=== PATIENT | male | born 1950 | race Caucasian/White ===

== ENCOUNTER 2020-01-02 09:46 | Outpatient (CLI) | payer MEDICARE, SELFPAY ==
--- NOTE | 2020-01-09 03:03 | SLEEP_ITS ---
Sleep Study DATE OF STUDY: 01/02/2020 HISTORY: The patient is 69 years of age. This patient underwent home sleep apnea test, with a history of loud snoring, interrupted sleep, nonrefreshing sleep, and daytime sleepiness, which is quite significant. The patient reports an Larwill Sleepiness Scale of 16/24, consistent with moderate to severe hypersomnia. This patient underwent a home sleep study using [employer]. Recording time starting at 10:28 p.m., 7 hours and 30 minutes. Monitoring time 7 hours and 18 minutes. EVENTS INDEX: The patient had a total of 388 apneas, the obstructive apnea index was 38.6, central apnea index was 11.6, mixed 2.7, and unclassified 0.1. The patient had 80 hypopneas with index of 22.8. Therefore, respiratory event index was 64. Supine index was 63.9, nonsupine index was 69.2. This is consistent with severe obstructive sleep apnea. OXYGEN SATURATION: The baseline saturation was 94%. The average saturation was 91%. Lowest saturation was 66%. Desaturation index was 49.7. The oxygen saturation graft appears to show 3 or 4 episodes of severe desaturations, which is highly suggestive of REM associated hypoxia. PULSE STATISTICS: Average pulse rate was 56, range was 45-86 per minute. CONCLUSION: The study shows presence of severe obstructive sleep apnea, associated with significant desaturation. Given the fact that the patient has significant daytime symptomatology, one would strongly recommend having this patient return for an in-lab full night CPAP titration study. WICHO AGUIRRE MD BEHAVIORAL SERVICES TECH BEHAVIORAL SERVICES TECH D I MT: Dee
== END 2020-01-02 09:47 | disposition home or self-care (01) ==
LOC: CHSCSM 09:49
PROVIDERS: PCP Internal Medicine; Visit Provider Internal Medicine
DX: G47.33 Obstructive sleep apnea (adult) (pediatric) (principal)
CPT/HCPCS: 95806

== ENCOUNTER 2020-06-12 09:14 | Outpatient (CLI) | payer MEDICARE, SELFPAY ==
--- NOTE | ~2020-06-12 | XR_ITS ---
XR lumbar spine 2-3V DATE: 06/12/2020 09:48 INDICATION: Low back pain TECHNIQUE: AP, lateral, coned lateral lumbosacral views COMPARISON: None FINDINGS: The lumbar vertebrae are normally aligned. No fracture or bone destruction or spondylolisth esis. The lumbar pedicles are intact. The L5-S1 disc space is well preserved. There is mild degenerative disc disease at L1-2, L2-3, L3-4 a nd moderate degenerative disc disease at L4-5. The sacral iliac joints are intact. IMPRESSION: Multilevel mild to moderate degenerative disc disease Reviewed, dictated and finalized at location B.
--- NOTE | ~2020-06-12 | XR_ITS ---
XR_CERV2-3V_CR DATE: 06/12/2020 09:48 INDICATION: Neck pain TECHNIQUE: AP, lateral, open-mouth views COMPARISON: None FINDINGS: There is mild reversal cervical curvature. There is minimal levoscoliosis of the cervical s pine. There is moderately prominent degenerative disc disease at C3-4, mild degenerative disc disease at C4 -5, moderately severe degenerative disc disease at C5-6 and C6-7. There is prominent anterior spurrin g at C3-4, C4-5 and C5-6. C1 and C2 are normally aligned and the odontoid process is intact. No fracture or dislocation or lock ed facet or prevertebral soft tissue swelling. Uncovertebral joint spurring and apophyseal joint degenerative changes are noted throughout most of t he cervical spine. The uncovertebral joint spurring is particularly prominent on the right at C5-6 an d C6-7. IMPRESSION: Mild reversal and mild levoscoliosis Multilevel degenerative disc disease and extensive degenerative changes at the uncovertebral and apop hyseal joints Reviewed, dictated and finalized at Location A. Reviewed, dictated and finalized at location B. IMPRESSION: Mild reversal and mild levoscoliosis Multilevel degenerative disc disease and extensive degenerative changes at the uncovertebral and apophyseal joints
== END 2020-06-12 09:15 | disposition home or self-care (01) ==
PROVIDERS: PCP Internal Medicine; Visit Provider Internal Medicine
DX: M54.2 Cervicalgia (principal); M54.5 Low back pain
CPT/HCPCS: 72040; 72100

== ENCOUNTER 2020-06-17 15:51 | Outpatient (RCR) | payer MEDICARE, SELFPAY ==
--- NOTE | 2020-06-17 16:30 | PTOPEVAL ---
Thank you for referring Trace Vega to [facility]. Please review, sign, date and return this plan of care SVEN. I agree with and certify that the following plan of care is medically necessary. Referring Physician Date Admitting Provider: Attending Provider: Flex Mclaughlin MD Referring Provider: *PT Outpatient Evaluation Start: 06/17/20 16:02 Freq: Status: Active Protocol: Document 06/17/20 16:00 J (Rec: 06/17/20 16:30 [facility] [id number]) Therapy Assessment Status Assessment Status Assessment Status Evaluation Evaluation Information Problem Diagnosis neck and back pain Onset 05/11/20 Additional Evaluation Detail ndi = oswestry = 18% functionally declined Subjective Information patient reports arthritic Query Text:As Reported By Patient/ related pain. he report sno Family pain at rest this date. however, he reports increased pain in the neck when bending forward/looing down. he reports he has had pain in the back for years. he reports repetitive motions create increased pain in the lower back. he reports he sparked this the last time by playing miniature golf. he reports he has been to a chiropractor. Prior Level of Function Comments Additional Prior Level of Function patient reports he has a Comments history of back pain and neck pain. he reports in general it is relieved with chirpractic care. however, this time, he is unable to relieve this pain with any normal activities. 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 he reports he was at work this date. Pain Assessment Timing of Pain Assessment Timing of Pain Assessment Assessment Pain Scale Pain Scale Used Numeric (1 - 10) Self Report Pain Assessment Lower Back Reported Pain Level 0 Lowest Pain Intensity 0 Greatest Pain Intensity 7 Neck Reported Pain Level 0 Lowest Pain Intensity 0 Greatest Pain Intensity 2 Pain Score Pain Score 0,0: Self Report Additional Pain Score Comments increased neck pain with head turns side to side
== END 2020-07-11 10:42 | disposition home or self-care (01) ==
LOC: CHSPT 15:51
PROVIDERS: PCP Internal Medicine; Visit Provider Internal Medicine
DX: M54.2 Cervicalgia (principal); M54.5 Low back pain
CPT/HCPCS: 97014; 97110; 97161; G0283

== ENCOUNTER 2021-12-23 13:41 | Outpatient (CLI) | payer MEDICARE, SELFPAY ==
[2021-12-23 15:07] LABS: Influenza A QL RT-PCR Negative (Negative); Influenza B QL RT-PCR Negative (Negative); SARS-CoV-2 RNA PCR Negative (Negative)
== END 2021-12-23 13:42 | disposition home or self-care (01) ==
PROVIDERS: PCP Internal Medicine; Visit Provider Internal Medicine
DX: J06.9 Acute upper respiratory infection, unspecified (principal); Z20.822 Contact with and (suspected) exposure to COVID-19
CPT/HCPCS: 87502; C9803; U0003; U0005

== ENCOUNTER 2021-12-25 11:31 | Outpatient (CLI) | payer MEDICARE, SELFPAY ==
[2021-12-25 12:51] LABS: SARS-CoV-2 RNA PCR Negative (Negative)
== END 2021-12-25 11:32 | disposition home or self-care (01) ==
LOC: CHSLAB 11:33
PROVIDERS: PCP Internal Medicine; Visit Provider Internal Medicine
DX: J06.9 Acute upper respiratory infection, unspecified (principal); Z20.822 Contact with and (suspected) exposure to COVID-19
CPT/HCPCS: C9803; U0003; U0005

== ENCOUNTER 2022-01-27 16:48 | Outpatient (CLI) | payer MEDICARE, SELFPAY ==
--- NOTE | ~2022-01-27 | XR_ITS ---
EXAMINATION: XR sinus min 3V EXAM DATE: 01/27/2022 17:19 INDICATION: cough,fever,Recurrent sinusitis. TECHNIQUE: Sinus frontal, lateral, Amos, Vanessa's, submentovertex projections. There is no prior s tudy for comparison. FINDINGS: Congenitally underpneumatized frontal sinuses. Possible mild bilateral maxillary sinus muc operiosteal thickening. No sinus air-fluid levels suspected. Orbital rims are unremarkable. The soft tissue is unremarkable. IMPRESSION: Predominantly aerated sinuses with possibility of mild maxillary sinus mucoperiosteal th ickening. Reviewed, dictated and finalized at location G. IMPRESSION: Predominantly aerated sinuses with possibility of mild maxillary s inus mucoperiosteal thickening.
--- NOTE | ~2022-01-27 | XR_ITS ---
EXAMINATION: XR chest 2V EXAM DATE: 01/27/2022 17:18 INDICATION: cough,fever,Recurrent sinusitis . TECHNIQUE: Frontal and lateral projections of the chest obtained and reviewed. There is no prior misit dy for comparison. FINDINGS: The lungs are clear. There are no pleural effusions. The cardiomediastinal silhouette is within normal limits. There is no pneumothorax suspected. The bones and soft tissues are unremarkab le. IMPRESSION: Unremarkable chest x-ray exam. Reviewed, dictated and finalized at location G.
[2022-01-27 17:41] LABS: Hematocrit 43.7 % (37.0-46.0); Hemoglobin 14.4 g/dL (12.4-15.3); Mean Corpuscular Hemoglobin 30.6 pg (27.0-31.0); Mean Platelet Volume 8.8 fl (8.7-11.0); Platelet Count Result 164 K/mm3 (150-420); Red Cell Distribution Width 14.6 % (11.6-14.4)
[2022-01-27 17:58] LABS: Alanine Aminotransferase 65 U/L (16-63); Albumin Level 3.8 g/dL (3.4-5.0); Alkaline Phosphatase 40 U/L (46-116); Anion Gap 5 mmol/L (8-16); Aspartate Amino Transferase 42 U/L (15-37); Bilirubin,Total 0.4 mg/dL (0.00-1.00); Blood Urea Nitrogen 17 mg/dL (7-18); CRP 2.6 mg/dL (0.0-0.9); Calcium 8.6 mg/dL (8.5-10.1); Carbon Dioxide 30 mmol/L (21-32); Chloride 102 mmol/L (98-108); Estimated Glomerular Filt Rate 55; Glucose 94 mg/dL (70-99); Osmolality Calculated 285 mOsm/kg (285-295); Potassium 4.2 mmol/L (3.5-5.1); Sodium 137 mmol/L (136-145); Total Protein 7.1 g/dL (6.4-8.2)
[2022-01-27 18:16] LABS: Influenza A QL RT-PCR Negative (Negative); Influenza B QL RT-PCR Negative (Negative); SARS-CoV-2 RNA PCR Positive (Negative)
[2022-01-27 18:20] LABS: Band Neutrophils Percent 0 % (0-6); Basophils Percent Manual 0 % (0-1); Eosinophils Percent Manual 0 % (1-6); Lymphocytes Absolute Manual 1.47 K/mm3 (1.1-4.5); Lymphocytes Percent Manual 21 % (18-44); Monocytes Absolute Manual 1.33 K/mm3 (0.1-0.90); Monocytes Percent Manual 19 % (3-9); Neutrophils Percent Manual 60 % (46-73); Platelet Estimate Adequate (Adequate); Total Cells Counted 100
== END 2022-01-27 16:49 | disposition home or self-care (01) ==
PROVIDERS: PCP Internal Medicine; Visit Provider Internal Medicine
DX: U07.1 COVID-19 (principal); J06.9 Acute upper respiratory infection, unspecified; R05.9 Cough, unspecified; R50.9 Fever, unspecified; J32.9 Chronic sinusitis, unspecified
CPT/HCPCS: 36415; 70220; 71046; 80053; 85025; 86140; 87502; C9803; U0003; U0005

== ENCOUNTER 2024-02-01 12:49 | Outpatient (CLI) | payer MEDICARE, SELFPAY | END 2024-02-01 12:50 | disposition home or self-care (01) | PROVIDERS: PCP Internal Medicine; Visit Provider Otolaryngology | DX: H93.13 Tinnitus, bilateral (principal); H90.3 Sensorineural hearing loss, bilateral | CPT/HCPCS: 92557; 92567 ==

== ENCOUNTER 2024-03-16 09:30 | Outpatient (RCR) | payer MEDICARE, SELFPAY | END 2024-05-13 23:59 | disposition home or self-care (01) | LOC: ANHAUDASC 09:30 | PROVIDERS: PCP Internal Medicine; Visit Provider Internal Medicine | DX: Z46.1 Encounter for fitting and adjustment of hearing aid (principal) | CPT/HCPCS: 99199; V5261 ==

== ENCOUNTER 2024-12-18 16:16 | Outpatient (CLI) | payer MEDICARE, SELFPAY ==
--- NOTE | ~2024-12-18 | XR_ITS ---
EXAMINATION: XR shoulder LT min 2V DATE: 12/18/2024 16:29 INDICATION: Left shoulder pain. TECHNIQUE: 4 views of left shoulder were obtained. COMPARISON: None. FINDINGS: Alignment is normal. No fracture. There is mild osteoarthritis of the acromioclavicular heraclio nt. Glenohumeral joint is normal. IMPRESSION: 1. Mild osteoarthritis of acromioclavicular joint. Reviewed, dictated and finalized at location A. [facility]
--- OUTSIDE RECORDS SUMMARY | 2024-12-18 16:29 | XMS_ITS | Clinical Summary ---
Author Organization [facility] Address [facility] [place] [address] Care Team Providers Care Therapist Name Role Phone Flex Mclaughlin MD Primary Care Provider Geovanny Purvis MD Unavailable [phone] Allergies No known active allergies Medications fexofenadine (LOIS) 180 MG tablet Take 1 tablet (180 mg total) by mouth daily. 01/30/2015 Active aspirin EC 81 MG tablet Take 1 tablet (81 mg total) by mouth daily. 01/30/2015 Active Fish Oil 1000 MG Cap Take 1 capsule (1,000 mg total) by mouth daily. 01/30/2015 Active Psyllium-Calciu m (METAMUCIL PLUS CALCIUM) Cap Take 1 capsule by mouth daily. 01/30/2015 Active montelukast 10 MG tablet Take 1 tablet (10 mg total) by mouth daily. 01/30/2015 Active multivitamin tablet Take 1 tablet by mouth daily. 01/30/2015 Active Ascorbic Acid (VITAMIN C OR) Take 1 tablet by mouth daily. 01/30/2015 Active VITAMIN E OR Take by mouth daily. 01/30/2015 Active simvastatin 10 MG tablet Take 1 tablet (10 mg total) by mouth nightly at bedtime. 04/07/2017 Active Ergocalciferol (VITAMIN D2) 400 units Tab Take 1 tablet by mouth daily. 04/20/2018 Active Active Problems Problem Noted Date Diagnosed Date LUCAS on CPAP 05/01/2020 Hyperlipidemia Essential (primary) hypertension Immunizations Name Administration Dates Next Due Fluzone High Dose - >Age 65 (Prefilled Syringe) 08/21/2019,08/14/2018,07/28/2017 Influenza (Generic) 08/22/2015 Influenza Adult (Generic) 08/13/2016,12/2013,07/24/2013,2011 Pneumococcal (Pneumovax 23) 11/01/2017 Pneumococcal (Prevnar 13) 08/29/2015 Shingrix 10/19/2019,08/21/2019 Td 07/15/2013 Tdap (Adacel) 10/02/2012 Zoster (Zostavax) 43815 Unt/0.65Ml 10/02/2013 Family History Medical History Relation Comments AAA Father Stroke Maternal Grandfather Stroke Paternal Grandmother Relation Status Comments Brother 1 Alive Brother 2 Alive Father (Age 99) Maternal Grandfather (Age 83) Maternal Grandmother (Age 95) Mother Alive Paternal Grandfather (Age 77) Paternal Grandmother (Age 72) Social History Tobacco Use Types Packs/Day Years Used Date Smoking Tobacco: Never Smokeless Tobacco: Never Alcohol Use Standard Drinks/Week Comments No 0 (1 standard drink = 0.6 oz pur e alcohol) Sex and Gender Information Value Date Recorded Sex Assigned at Not on file Legal Sex Male 9:37 PM CDT Gender Identity Not on file Sexual Orientation Not on file 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 Not on file Not on file Not on f ile Last Filed Vital Signs Vital Sign Reading Time Taken Comments Blood Pressure 126/84 05/24/2024 11:41 AM CDT Pulse 56 05/24/2024 11:41 AM CDT Temperature - - Respiratory Rate - - Oxygen Saturation 97% 05/13/2022 8:54 AM CDT Inhaled Oxygen Concentration - - Weight 110.7 kg (244 lb) 05/24/2024 11:41 AM CDT Height 182.9 cm (6') 05/24/2024 11:41 AM CDT Body Mass Index 33.09 05/24/2024 11:41 AM CDT Plan of Treatment Upcoming Encounters Date Type Department Care Team (Late st Contact Info) Description 05/30/2025 9:15 AM CDT [facility] [address] [place] [phone] Geovanny Purvis MD [address] [address] Health Maintenance Due Date Last Done Comments Colorectal Cancer Screening Colonoscopy (10 Years) 1950 Hepatitis C 1969 Annual Medicare Wellness Visit 2016 DTaP, Tdap and Td Vaccines (3 - Td or Tdap) 07/15/2023 07/15/2013, 10/02/2012 COVID-19 Vaccine ( - season) 2024 Influenza Adult (#1) 2024 08/21/2019, 08/14/2018, 07/28/2017, Additional history exists RSV Immunization or 60+ Years (1 - 1-dose 75+ series) 2026 Pneumococcal Vaccine: 65+ Years Completed 11/01/2017, 08/29/2015 Zoster Vaccines Completed 10/19/2019, 08/07, 10/02/2013 Meningococcal B Vaccine Aged Out No l onger eligible based on patient's age to complete this topic Meningococcal Vaccine Aged Out No drew arelis eligible based on patient's age to complete this topic RSV Immunizations Under 20 Months Aged Out No longer eligible based on patient's age to complete this topic Insurance [employer] Care Teams Therapist Relationship Specialty Start Date End Date Flex Mclaughlin MD [address] [place] [address] PCP - General INTERNAL MEDICINE 04/07/16 Geovanny Purvis MD [facility]. [address] [address] [employer] Manager Web CARDIOVASCULAR DISEASE 04/07/16
--- OUTSIDE RECORDS SUMMARY | 2024-12-18 16:29 | XMS_ITS | Encounter Summary ---
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 No action needed documented in this encounter Plan of Treatment Upcoming Encounters Date Type Department Care Team (Late st Contact Info) Description 05/30/2025 9:15 AM CDT Office Visit [facility] [address] [place] [phone] Geovanny Purvis MD [facility]. [address] [address] documented as of this encounter Procedures Procedure Name Priority Date/Time Associated Diagnosis Comments COMPREHENSIVE METABOLIC PANEL Routine 11/26/2022 LIPID PANEL Routine 11/26/2022 CBC, MANUAL DIFF Routine 11/26/2022 THYROID STIM HORMONE TSH Routine 11/26/2022 CBC (OUTSIDE LAB) Routine 01/27/2022 COMPREHENSIVE METABOLIC PANEL Routine 01/27/2022 C-REACTIVE PROTEIN Routine 01/27/2022 PROSTATE SPECIFIC ANTIGEN,TOTAL Routine 11/13/2021 LIPID PANEL Routine 11/13/2021 THYROID STIM HORMONE TSH Routine 11/13/2021 COMPREHENSIVE METABOLIC PANEL Routine 10/28/2017 LIPID PANEL Routine 10/28/2017 CBC (OUTSIDE LAB) Routine 01/07/2017 COMPREHENSIVE METABOLIC PANEL Routine 01/07/2017 PHOSPHORUS, INORGANIC PHOSPHATE Routine 01/07/2017 VITAMIN D, 25 OH Routine 01/07/2017 MAGNESIUM Routine 01/07/2017 CBC (OUTSIDE LAB) Routine 10/26/2016 COMPREHENSIVE METABOLIC PANEL Routine 10/26/2016 LIPID PANEL Routine 10/26/2016 LIPID PANEL Routine 10/26/2016 THYROID STIM HORMONE TSH Routine 10/26/2016 documented in this encounter Results * COMPREHENSIVE METABOLIC PANEL (11/26/2022) Pathologist [facility] SODIUM S/P/B 142 GLUCOSE 84 mg/dL AST 27 BUN 17 CREATININE S/P/B 1.24 0.7 - 1.3 CALCIUM S/P/B 9.3 POTASSIUM S/P/B 4.4 CHLORIDE S/P/B 104 ALT 29 GFR ESTIMATE 62 Narrative Resulting Agency Comment Default History Genericprovider LABORATORY Edited Result - Final * LIPID PANEL (11/26/2022) Pathologist [facility] CHOLESTEROL 166 TRIGLYCERIDES 91 HDL 44 LDL (CALCULATED) 103 NON HDL CHOLESTEROL 122 Narrative Resulting Agency Comment us Default History Genericprovider LABORATORY Edited Result - Final * CBC, MANUAL DIFF (11/26/2022) [facility] WBC 5.8 HGB 15.7 HCT 48.9 PLT 243 Narrative Resulting Agency Comment Default History Genericprovider LABORATORY Edited Result - Final * THYROID STIM HORMONE, TSH (11/26/2022) [facility] TSH 4.85 Narrative Resulting Agency Comment Default History Genericprovider LABORATORY Edited Result - Final * C-REACTIVE PROTEIN (01/27/2022) [facility] CRP 2.6 01/27/2022 Doc [facility] LABORATORY Final Result * COMPREHENSIVE METABOLIC PANEL (01/27/2022) Pathologist [facility] SODIUM S/P/B 137 POTASSIUM S/P/B 4.2 CO2 30 CHLORIDE S/P/B 102 GLUCOSE 94 mg/dL CALCIUM S/P/B 8.6 BUN 17 CREATININE S/P/B 1.29 0.7 - 1.3 EGFR NON-AFR. AMER. 55 <=90 ALKALINE PHOSPHATASE S/P/B 40 ALT 65 AST 42 BILIRUBIN TOTAL S/P/B 0.4 ALBUMIN S/P/B 3.8 3.5 - 5.0 TOTAL PROTEIN S/P/B 7.1 01/27/2022 us Doc [facility] LABORATORY Final Result * CBC (OUTSIDE LAB) (01/27/2022) WBC 7.0 HGB 14.4 HCT 43.7 PLT 164 01/27/2022 us Doc [facility] Abstract LAB-OUTSIDE/ABSTRACTED Final Result * PROSTATE SPECIFIC ANTIGEN,TOTAL (11/13/2021) PSA 0.66 11/13/2021 us Doc [facility] LABORAT[facility] Final Result * THYROID STIM HORMONE, TSH (11/13/2021) TSH 5.10 11/13/2021 us Doc [facility] LABORAT[facility] Final Result * LIPID PANEL (11/13/2021) CHOLESTEROL 181 HDL 47 TRIGLYCERIDES 163 NON HDL CHOLESTEROL 134 LDL (CALCULATED) 106 11/13/2021 us Doc [facility] LABORATORY Final Result * LIPID PANEL (10/28/2017) CHOLESTEROL 173 HDL 47 TRIGLYCERIDES 99 LDL (CALCULATED) 106 10/28/2017 us Doc [facility] LABORATORY Edited Resul t - Final * COMPREHENSIVE METABOLIC PANEL (10/28/2017) SODIUM S/P/B 144 POTASSIUM S/P/B 4.8 CO2 31 CHLORIDE S/P/B 105 GLUCOSE 98 mg/dL CALCIUM S/P/B 9.0 BUN 14 CREATININE S/P/B 1.16 0.7 - 1.3 EGFR NON-AFR. AMER. 67 <=90 ALKALINE PHOSPHATASE S/P/B 38 ALT 50 AST 28 BILIRUBIN TOTAL S/P/B 0.32 ALBUMIN S/P/B 4.1 3.5 - 5.0 TOTAL PROTEIN S/P/B 7.2 10/28/2017 [facility]ORAT[facility] Final Result * CBC (OUTSIDE LAB) (01/07/2017) WBC 6.2 HGB 15.4 HCT 45.8 PLT 203 01/07/2017 Doc [facility] LAB-OUTSIDE/ABSTRACTED Final Result * MAGNESIUM (01/07/2017) MAGNESIUM 2.1 01/07/2017 Doc [facility] LABORAT[facility] Final Result * PHOSPHORUS, INORGANIC PHOSPHATE (01/07/2017) PHOSPHORUS 4.0 01/07/2017 [facility] Final Result * VITAMIN D, 25 OH (01/07/2017) VITAMIN D 25 HYDROXY S/P/B 29 01/07/2017 [facility] Final Result * COMPREHENSIVE METABOLIC PANEL (01/07/2017) SODIUM S/P/B 142 POTASSIUM S/P/B 4.7 CO2 30 CHLORIDE S/P/B 105 GLUCOSE 85 CALCIUM S/P/B 9.3 BUN 16 CREATININE S/P/B 1.22 0.7 - 1.3 EGFR AFR. AMER. 72 EGFR NON-AFR. AMER. 62 <=90 ALKALINE PHOSPHATASE S/P/B 33 ALT 32 AST 27 BILIRUBIN TOTAL S/P/B 0.5 ALBUMIN S/P/B 4.5 3.5 - 5.0 TOTAL PROTEIN S/P/B 7.0 GLOBULIN 2.5 01/07/2017 us Doc [facility] LABORATORY Edited Resul t - Final * LIPID PANEL (10/26/2016) Pathologist [facility] CHOLESTEROL 180 HDL 49 TRIGLYCERIDES 105 LDL (CALCULATED) 110 10/26/2016 us Doc [facility] LABORATORY Final Result * (ABNORMAL) COMPREHENSIVE METABOLIC PANEL (10/26/2016) SODIUM S/P/B 143 POTASSIUM S/P/B 4.7 CO2 22 CHLORIDE S/P/B 105 GLUCOSE 87 CALCIUM S/P/B 8.9 BUN 17 CREATININE S/P/B 1.32(A) 0.7 - 1.3 EGFR NON-AFR. AMER. 58 ALKALINE PHOSPHATASE S/P/B 40 ALT 43 AST 28 BILIRUBIN TOTAL S/P/B 0.52 ALBUMIN S/P/B 4.1 3.5 - 5.0 TOTAL PROTEIN S/P/B 6.9 10/26/2016 us Doc [facility] LABORAT[facility] Final Result * THYROID STIM HORMONE, TSH (10/26/2016) Pathologist [facility] TSH 3.67 10/26/2016 us Doc [facility] LABORATORY Final Result * CBC (OUTSIDE LAB) (10/26/2016) WBC 5.2 HGB 15.7 HCT 47.1 PLT 208 10/26/2016 us Doc [facility] Abstract LAB-OUTSIDE/ABSTRACTED Edite d Result - Final * LIPID PANEL (10/26/2016) CHOLESTEROL 180 HDL 49 TRIGLYCERIDES 105 LDL (CALCULATED) 110 10/26/2016 us Doc [facility] LABORATORY Final Result documented in this encounter Visit Diagnoses Not on filedocumented in this encounter Care Teams Data Analysis Assistant Relationship Specialty Start Date End Date Flex Mclaughlin MD [address] [place] [phone] PCP - General INTERNAL MEDICINE 04/07/16 Geovanny Purvis MD [facility] [address] [place] [address] [employer] Weaver CARDIOVASCULAR DISEASE 04/07/16 documented as of this encounter
--- OUTSIDE RECORDS SUMMARY | 2024-12-18 16:29 | XMS_ITS | Encounter Summary ---
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 [address] [place] [address] documented as of this encounter Visit Diagnoses Not on filedocumented in this encounter Care Teams Director Of Market Intelligence Relationship Specialty Start Date End Date Flex Mclaughlin MD [address] [place] [address] PCP - General INTERNAL MEDICINE 04/07/16 Geovanny Purvis MD [facility]. [facility] [address] [place] [address] [employer] Physical Security Manager CARDIOVASCULAR DISEASE 04/07/16 documented as of this encounter
== END 2024-12-18 16:17 | disposition home or self-care (01) ==
LOC: CHSIMG 16:18
PROVIDERS: PCP Internal Medicine; Visit Provider Internal Medicine
DX: M25.512 Pain in left shoulder (principal); M19.012 Primary osteoarthritis, left shoulder
CPT/HCPCS: 73030

== ENCOUNTER 2024-12-25 14:51 | Outpatient (RCR) | payer MEDICARE, SELFPAY ==
--- NOTE | 2024-12-25 15:45 | OPREHPOC ---
Outpatient Therapy Plan of Care This is a Multidisciplinary Plan of Care that may contain components documented by all disciplines (PT, OT, and ST.) PT Problem 1 PT Problem #1 Knowledge Deficit PT Goal 1 Goal / Goal Update 1. independent and compliant with HEP PT Problem 2 PT Problem #2 Pain PT Goal 1 Goal / Goal Update 1. no more than 1/10 pain in the L shoulder with UE functional activities and golf swing. Target Visit 12 PT Problem 3 PT Problem #3 Impaired Strength PT Goal 1 Goal / Goal Update 1. 5/5 L shoulder flex 2. 5/5 bilateral shoulder ER Target Visit 12 PT Problem 4 PT Problem #4 Impaired Range of Motion PT Goal 1 Goal / Goal Update 1. 90 degrees active L shoulder ER 2. 70 degrees active L shoulder IR Target Visit 12 PT Problem 5 PT Problem #5 Impaired Functional Mobility PT Goal 1 Goal / Goal Update 1. quick dash to display 5% or less functional deficits 2. patient to lift 10lbs overhead with the L UE without pain 3. patient to swing a golf club at full speed without pain in the L shoulder Target Visit 12
--- NOTE | 2024-12-25 15:45 | PTOPEVAL1 ---
Assessment and note entered by JT File, PT Evaluation Information Assessment Status Evaluation ICD-10 Condition Codes (PT) Pain in left shoulder M25.512 Onset 12/18/24 Subjective Information patient reports he has been having pain in the L shoulder for several months. he reports no injury. he reports he did have an xray of the L shoulder, and was told he has mild arthritis. he was put on a steroid, and no has little pain. he reports he notices increased pain in the L shoulder when driving and holding the steering wheel with the L arm while resting arm on the arm rest. he reports he would like to be able to play golf when it gets warm. Reported Pain Level Pain Score 0: Self Report Assessment PT Clinical Summary mr. carter is a 74 yo man who presents to skilled PT services for evaluation and treatment of L shoulder pain. his pain is of insidious onset , and has been relieved with oral steroids. he displays decreased L shoulder rotation rom, L shoulder flex strength, and pain with RTC and impingement testing. he also presents with popping and grinding in the L shoulder. his signs and symptoms are consistent with a rtc tendonitis with impingement and OA of the L shoulder. continued skilled PT is indicated to improve his objective/ functional deficits and return to his prior level functional activity performance/quality of life. Plan of Care Interventions Electrical Stimulation,Hot Pack/Cold Pack,Manual Therapy,Neuro Re-education,Patient/Caregiver Education,Therapeutic Activities,Therapeutic Exercise PT Services Indicated Yes Treatment Frequency and 3x weekly for 12 visits Duration These treatments will address the objective and functional deficits as defined above. The patient will be advanced safely and appropriately in order for the patient to progress towards his/her prior level of function. Additional exercises will be introduced and as well as a comprehensive home exercise program upon discharge, if needed, ?to ensure carryover of functional gains achieved in the clinic. This treatment plan has been reviewed and agreement upon by the patient.
--- NOTE | 2025-01-24 16:17 | OPREHPOC ---
Outpatient Therapy Plan of Care This is a Multidisciplinary Plan of Care that may contain components documented by all disciplines (PT, OT, and ST.) PT Problem 1 PT Problem #1 Knowledge Deficit PT Goal 1 Goal / Goal Update 1. independent and compliant with HEP Progress Met PT Problem 2 PT Problem #2 Pain PT Goal 1 Goal / Goal Update 1. no more than 1/10 pain in the L shoulder with UE functional activities and golf swing. Target Visit 12 Progress Not Met PT Problem 3 PT Problem #3 Impaired Strength PT Goal 1 Goal / Goal Update 1. 5/5 L shoulder flex 2. 5/5 bilateral shoulder ER Target Visit 12 Progress Not Met PT Problem 4 PT Problem #4 Impaired Range of Motion PT Goal 1 Goal / Goal Update 1. 90 degrees active L shoulder ER 2. 70 degrees active L shoulder IR Target Visit 12 Progress Met PT Problem 5 PT Problem #5 Impaired Functional Mobility PT Goal 1 Goal / Goal Update 1. quick dash to display 5% or less functional deficits. met 2. patient to lift 10lbs overhead with the L UE without pain 3. patient to swing a golf club at full speed without pain in the L shoulder Target Visit 12 Progress Partially Met
--- NOTE | 2025-01-24 16:17 | PTOPPROGNS ---
Assessment and note entered by JT File, PT Evaluation Information Assessment Status Progress ICD-10 Condition Codes (PT) Pain in left shoulder M25.512 Onset 12/18/24 Subjective Information patient reports the L shoulder is better since beginning therapy. however, he reports he continues to have pain in the L shoulder with raising the shoulder up to his side. he reports at times still driving long distances with the L arm will bother him. he reports he has not yet tried to return to golf. Assessment PT Clinical Summary mr. carter presents to skilled PT for his 10th skilled therapy visit. he presents with improved L shoulder rom, decreased pain, and improved functional performance overall per the quick dash. he is progressing towards goals, but would benefit from continued skilled PT to improve his remaining objective/functional deficits and achieve all goals for skilled PT. Plan of Care Interventions Electrical Stimulation,Hot Pack/Cold Pack,Manual Therapy,Neuro Re-education,Patient/Caregiver Education,Therapeutic Activities,Therapeutic Exercise PT Services Indicated Yes Treatment Frequency and continue per initial POC Duration These treatments will address the objective and functional deficits as defined above. The patient will be advanced safely and appropriately in order for the patient to progress towards his/her prior level of function. Additional exercises will be introduced and as well as a comprehensive home exercise program upon discharge, if needed, ?to ensure carryover of functional gains achieved in the clinic. This treatment plan has been reviewed and agreement upon by the patient.
--- NOTE | 2025-01-31 11:28 | OPREHPOC ---
Outpatient Therapy Plan of Care This is a Multidisciplinary Plan of Care that may contain components documented by all disciplines (PT, OT, and ST.) PT Problem 1 PT Problem #1 Knowledge Deficit PT Goal 1 Goal / Goal Update 1. independent and compliant with HEP Progress Met PT Problem 2 PT Problem #2 Pain PT Goal 1 Goal / Goal Update 1. no more than 1/10 pain in the L shoulder with UE functional activities and golf swing. Target Visit 12 Progress Met PT Problem 3 PT Problem #3 Impaired Strength PT Goal 1 Goal / Goal Update 1. 5/5 L shoulder flex 2. 5/5 bilateral shoulder ER Target Visit 12 Progress Met PT Problem 4 PT Problem #4 Impaired Range of Motion PT Goal 1 Goal / Goal Update 1. 90 degrees active L shoulder ER 2. 70 degrees active L shoulder IR Target Visit 12 Progress Met PT Problem 5 PT Problem #5 Impaired Functional Mobility PT Goal 1 Goal / Goal Update 1. quick dash to display 5% or less functional deficits. -met 2. patient to lift 10lbs overhead with the L UE without pain -met 3. patient to swing a golf club at full speed without pain in the L shoulder -not met due to golf course closure Target Visit 12 Progress Partially Met
--- NOTE | 2025-01-31 11:28 | PTOPDC ---
Assessment and note entered by Patricia Womack, PT Evaluation Information Assessment Status Discharge ICD-10 Condition Codes (PT) Pain in left shoulder M25.512 Onset 12/18/24 Subjective Information Trace reports his shoulder is feeling better and he doesn't have any pain today. He had some pain and a throbbing in the shoulder yesterday when he was lying down but he was able to get outside and rake his yard and the pain subsided. He did try to get back into golfing yesterday but was unable to because the course was closed, but he plans on getting back into it as soon as possible. He's been independent with his HEP and feels like his pain is manageable at this point. Reported Pain Level Pain Score 0: Self Report Pain Score 1: Self Report Assessment PT Clinical Summary Mr. Piña has attended 12 total skilled PT visits addressing L shoulder pain. Since beginning therapy he has made good improvements in his L shoulder AROM and strength. He attempted to golf yesterday but was unable to due to course closure, but he plans on getting back into golfing as soon as he can and feels like he'll be able to return to golfing without much difficulty. He denies pain in the L shoulder and when he has pain he feels like it's manageable. He has been independent with his HEP, he has met or partially met all therapeutic goals set for him at this time and therefore skilled PT intervention is no longer indicated. Plan of Care PT Services Indicated No
== END 2025-01-31 13:07 | disposition home or self-care (01) ==
LOC: CHSPT 14:51
PROVIDERS: PCP Internal Medicine; Visit Provider Internal Medicine
DX: M25.512 Pain in left shoulder (principal)
CPT/HCPCS: 97110; 97112; 97150; 97161; 97530

== ENCOUNTER 2025-09-04 11:14 | Outpatient (CLI) | payer MEDICARE, SELFPAY ==
[2025-09-04 11:31] LABS: Hematocrit 46.0 % (37.0-46.0); Hemoglobin 15.0 g/dL (12.4-15.3); Mean Corpuscular HGB Conc 32.6 g/dL (32-36); Mean Corpuscular Hemoglobin 30.0 pg (27.0-31.0); Mean Corpuscular Volume 92.0 fL (78.0-102.0); Platelet Count Result 232 K/mm3 (150-420); Red Blood Count 5.00 M/mm3 (4.70-6.10); White Blood Count 11.6 K/mm3 (4.8-10.8)
[2025-09-04 11:57] LABS: Alanine Aminotransferase 48 U/L (6-50); Albumin Level 4.7 g/dL (3.5-5.1); Alkaline Phosphatase 40 U/L (38-126); Anion Gap 6 mmol/L (4-12); Aspartate Amino Transferase 46 U/L (17-59); Bilirubin,Total 0.7 mg/dL (0.2-1.3); Blood Urea Nitrogen 15 mg/dL (9-20); Calcium 9.5 mg/dL (8.4-10.2); Carbon Dioxide 33 mmol/L (22-30); Chloride 103 mmol/L (98-107); Estimated Glomerular Filt Rate 56; Glucose 87 mg/dL (65-110); Osmolality Calculated 293 mOsm/kg (285-295); Potassium 5.1 mmol/L (3.4-5.0); Sodium 142 mmol/L (137-145); Total Protein 8.4 g/dL (6.3-8.2)
[2025-09-04 12:27] LABS: Prostate Specific Antigen 3.1 ng/mL (< OR = 4.0)
== END 2025-09-04 11:15 | disposition home or self-care (01) ==
LOC: CHSLAB 11:15
PROVIDERS: PCP Internal Medicine; Visit Provider Internal Medicine
DX: R31.9 Hematuria, unspecified (principal)
CPT/HCPCS: 36415; 80053; 84153; 85027; 87086